=== PATIENT | female | born 1975 | race Caucasian/White ===

== ENCOUNTER 2024-11-12 10:59 | Emergency (ER) | payer MEDICAID ==
[~2024-11-12] VITALS: Ht 160 cm; Wt 55.0 kg
[2024-11-12 11:08] VITALS: O2SAT 100
[2024-11-12] MEDS: MORPHINE SULFATE 4 MG/ML INJ (FOR IV/IM USE) IV STA (11:30)
[2024-11-12 11:59] LABS: BASOPHILS % 0.3 % (0.0-2.0); EOSINOPHILS % 0.5 % (0.0-5.0); HEMATOCRIT. 33.5 % (36.0-48.0); HEMOGLOBIN. 10.5 g/dL (12.0-16.0); LYMPHOCYTES % 9.8 % (20.0-50.0); MEAN CORPUSCULAR HEMOGLOBIN 26.8 pg (28.0-32.0); MEAN CORPUSCULAR HGB CONC 31.2 g/dL (31.0-37.0); MEAN PLATELET VOLUME 9.3 fl (7.4-10.4); MONOCYTES % 4.9 % (2.0-8.0); NEUTROPHILS % 84.5 % (40.0-76.0); PLATELET 313 x1000/uL (130-400); RED CELL DISTRIBUTION WIDTH 15.2 % (11.6-14.6); WHITE BLOOD COUNT 14.1 x1000/uL (4.5-11.0)
[2024-11-12 12:06] LABS: CHLORIDE 106 mEq/L (98-107); POTASSIUM 3.2 mEq/L (3.5-5.1); SODIUM 136 mEq/L (136-145)
[2024-11-12 12:07] LABS: CALCIUM 8.3 mg/dL (8.7-10.4); CARBON DIOXIDE 22 mEq/L (21-32)
[2024-11-12 12:12] LABS: CREATININE 0.8 mg/dL (0.6-1.0); GLUCOSE 334 mg/dL (70-105); UREA NITROGEN BLOOD 9 mg/dL (9-23)
[2024-11-12 12:43] LABS: TROPONIN I HIGH SENSITIVITY < 4 ng/L (3.0-34)
[2024-11-12] MEDS ORDERED: ASPIRIN 325MG EC TABLET PO ONE (13:30)
[2024-11-12 15:39] LABS: IRON 13 ug/dL (50-170); TRIGLYCERIDE 113 mg/dL (0-150)
[2024-11-12 15:40] LABS: ETHANOL BLOOD 108 mg/dL (<10); LDL CHOLESTEROL 65 mg/dL (5-100)
[2024-11-12 15:41] LABS: CHOLESTEROL 124 mg/dL (<200); HDL CHOLESTEROL 48 mg/dL (>65); TOTAL IRON BINDING CAPACITY 264 ug/dl (250-425)
[2024-11-12 15:44] LABS: FOLIC ACID (FOLATE) SERUM 19.62 ng/mL (>5.38); T4 FREE 1.08 ng/dL (0.89-1.76); THYROID STIMULATING HORMONE 0.33 uIU/mL (0.55-4.78)
[2024-11-12 15:49] LABS: VITAMIN B12 SERUM > 2000 pg/mL (211-911)
[2024-11-12 16:22] VITALS: BP 135/86; PULSE 85; RESP 18; TEMP 37.00296; O2SAT 99
[2024-11-12 19:19] LABS: TROPONIN I HIGH SENSITIVITY < 4 ng/L (3.0-34)
== END 2024-11-12 23:02 | disposition left against medical advice (07) ==
LOC: ER 10:59 → EDBEDREQTM 11:17 → EDBEDREQ 13:33 → EDBEDREQTM 13:33 → CANBEDREQ 23:01 → ER 23:02
DX: R07.9 Chest pain, unspecified (principal); E11.65 Type 2 diabetes mellitus with hyperglycemia
CPT/HCPCS: 80061; 80048; 80320; 82607; 82746; 83036; 83880; 84439; 83540; 83550; 83690; 84443; 85025; 84484; 36415; 71045; 93005; 96374; 99285; J2270; G0480